=== PATIENT | male | born 1995 | race American Indian/Alaskan Native ===

== ENCOUNTER 2016-08-12 13:07 | Emergency (ER) | payer SELFPAY ==
[2016-08-12 15:02] VITALS: BP 140/88
== END 2016-08-12 23:17 | disposition left against medical advice (07) ==
LOC: ED 13:07
DX: T20.00XA Burn of unspecified degree of head, face, and neck, unspecified site, initial encounter (principal); T23.009A Burn of unspecified degree of unspecified hand, unspecified site, initial encounter; Z53.21 Procedure and treatment not carried out due to patient leaving prior to being seen by health care provider; X08.8XXA Exposure to other specified smoke, fire and flames, initial encounter; Y93.9 Activity, unspecified; Y92.9 Unspecified place or not applicable; Y99.9 Unspecified external cause status

== ENCOUNTER 2019-08-17 02:56 | Emergency (ER) | payer SELFPAY ==
[2019-08-17] MEDS ORDERED: IPRATROPIUM/ALBUTEROL SULFATE 3 ML AMPUL.NEB IH ONE (03:46)
[2019-08-17] MEDS ORDERED: predniSONE 20 MG TAB PO ONE (03:46)
[2019-08-17] MEDS ORDERED: methylPREDNISolone Sod Succinate 125 MG/2 ML INJ IM ONE (04:02)
[2019-08-17] MEDS ORDERED: ONDANSETRON 4 MG ODT TAB PO ONE (04:02)
--- NOTE | 2019-08-17 04:16 | XRay Report ---
CHEST 2 VIEWS INDICATION / CLINICAL INFORMATION: Cough, wheezing, body aches and chills for 3 days.. COMPARISON: None available. FINDINGS: SUPPORT DEVICES: None. HEART / MEDIASTINUM: The heart size and pulmonary vasculature are normal. LUNGS / PLEURA: No significant pulmonary or pleural abnormality. No pneumothorax. ADDITIONAL FINDINGS: No significant additional findings. IMPRESSION: No acute findings. There is no evidence of pneumonia. Signer Name: Chepe Eaton MD Signed: 08/17/2019 4:11 AM Workstation Name: [id number]
--- NOTE | 2019-08-17 05:11 | Emergency Department Report ---
- General Chief Complaint: Upper Respiratory Infection Stated Complaint: FEVER/ASTHMA Source: patient Mode of arrival: Ambulatory Limitations: No Limitations - History of Present Illness Initial Comments: Patient is a 24-year-old -[place] male with a history of chronic asthma with occasional exacerbations presents to the ED, acute onset persistent nasal and sinus congestion, dry cough, sore throat, diffuse body aches and pains for the last 2 days, and shortness of breath with wheezing and chest tightness for the last 12 hours. Patient states that he does not have any rescue inhaler at home because he rarely gets asthma attacks. Patient denies dizziness, fever, chills, cough, chest pain, palpitations, abdominal pain, nausea and vomiting, neck pain or change in vision and syncope. MD Complaint: cough, sore throat, rhinorrhea, nasal congestion, other (shortness of breath and wheezing) -: Sudden, days(s) (2) Severity: severe Severity scale (0 -10): 7 Quality: dull, aching Consistency: constant Improves With: nothing Context: sick contacts Associated Symptoms: denies other symptoms, headache, rhinorrhea, nasal congestion, sore throat, cough, shortness of breath. denies: fever, nausea, vomiting, diarrhea, confusion, weight loss, hoarseness Treatments Prior to Arrival: none - Related Data Previous Rx's Medication Instructions Recorded Last Taken Type Acetaminophen/Codeine 1 tab PO Q6H PRN #20 tab 09/05/14 Unknown Rx [Acetaminophen-Codeine #3 TAB] Amoxicillin [Amoxicillin TAB] 875 mg PO BID #20 tablet 09/05/14 Unknown Rx Albuterol INH(or & Nicu Only) 1 - 2 puff IH Q6H PRN #1 inh 08/17/19 Unknown Rx [ProAir HFA Inhaler] Azithromycin [Zithromax Z-SELINA] 250 mg PO DAILY #6 tablet 08/17/19 Unknown Rx Benzonatate [Tessalon Perles] 100 mg PO Q8HR #30 capsule 08/17/19 Unknown Rx Cetirizine HCl [Zyrtec 10mg tab] 10 mg PO DAILY #30 tablet 08/17/19 Unknown Rx Ibuprofen [Motrin] 600 mg PO Q8H PRN #24 tablet 08/17/19 Unknown Rx methylPREDNISolone [Medrol 4MG 4 mg PO DAILY #21 tab.ds.pk 08/17/19 Unknown Rx DOSEPAK (21 tabs)] Allergies Allergy/AdvReac Type Severity Reaction Status Date / Time No Known Allergies Allergy Verified 08/12/16 14:58 ED Review of Systems ROS: Stated complaint: FEVER/ASTHMA Other details as noted in HPI Constitutional: denies: chills, fever Eyes: denies: eye pain, eye discharge, vision change ENT: throat pain, congestion. denies: ear pain Respiratory: cough, shortness of breath, wheezing Cardiovascular: denies: chest pain, palpitations Endocrine: no symptoms reported Gastrointestinal: denies: abdominal pain, nausea, diarrhea Genitourinary: denies: urgency, dysuria Musculoskeletal: denies: back pain, joint swelling, arthralgia Skin: denies: rash, lesions Neurological: denies: headache, weakness, paresthesias Psychiatric: denies: anxiety, depression Hematological/Lymphatic: denies: easy bleeding, easy bruising ED Past Medical Hx - Past Medical History Previous Medical History?: Yes Hx Asthma: Yes - Surgical History Past Surgical History?: No - Social History Smoking Status: Current Every Day Smoker Substance Use Type: Marijuana - Medications Home Medications: Home Medications Medication Instructions Recorded Confirmed Last Taken Type Acetaminophen/Codeine 1 tab PO Q6H PRN #20 tab 09/05/14 Unknown Rx [Acetaminophen-Codeine #3 TAB] Amoxicillin [Amoxicillin TAB] 875 mg PO BID #20 tablet 09/05/14 Unknown Rx Albuterol INH(or & Nicu Only) 1 - 2 puff IH Q6H PRN #1 inh 08/17/19 Unknown Rx [ProAir HFA Inhaler] Azithromycin [Zithromax Z-SELINA] 250 mg PO DAILY #6 tablet 08/17/19 Unknown Rx Benzonatate [Tessalon Perles] 100 mg PO Q8HR #30 capsule 08/17/19 Unknown Rx Cetirizine HCl [Zyrtec 10mg tab] 10 mg PO DAILY #30 tablet 08/17/19 Unknown Rx Ibuprofen [Motrin] 600 mg PO Q8H PRN #24 tablet 08/17/19 Unknown Rx methylPREDNISolone [Medrol 4MG 4 mg PO DAILY #21 tab.ds.pk 08/17/19 Unknown Rx DOSEPAK (21 tabs)] ED Physical Exam - General Limitations: No Limitations General appearance: alert, in no apparent distress - Head Head exam: Present: atraumatic, normocephalic, normal inspection - Eye Eye exam: Present: normal appearance, PERRL, EOMI Pupils: Present: normal accommodation - ENT ENT exam: Present: normal orophraynx, mucous membranes moist, TM's normal bilaterally, normal external ear exam, other (grossly congested nasal passages) - Neck Neck exam: Present: normal inspection, full ROM - Respiratory Respiratory exam: Present: wheezes (mildly diffuse coarse wheezes throughout). Absent: respiratory distress, rales, rhonchi, accessory muscle use, decreased breath sounds, prolonged expiratory - Cardiovascular Cardiovascular Exam: Present: regular rate, normal rhythm, normal heart sounds. Absent: systolic murmur, diastolic murmur, rubs, gallop - GI/Abdominal GI/Abdominal exam: Present: soft, normal bowel sounds. Absent: tenderness, guarding, rebound, hyperactive bowel sounds - Extremities Exam Extremities exam: Present: normal inspection, full ROM, normal capillary refill - Back Exam Back exam: Present: normal inspection, full ROM. Absent: tenderness, CVA tenderness (L), muscle spasm, paraspinal tenderness - Neurological Exam Neurological exam: Present: alert, oriented X3, CN II-XII intact, normal gait, reflexes normal - Psychiatric Psychiatric exam: Present: normal affect, normal mood - Skin Skin exam: Present: warm, dry, intact, normal color. Absent: rash ED Course Vital Signs 08/17/19 08/17/19 03:05 04:38 Temperature 99.2 F Pulse Rate 107 H Pulse Rate [ 108 H Bilateral] Respiratory 18 Rate Respiratory 24 Rate [Bilateral ] Blood Pressure 153/82 O2 Sat by Pulse 88 Oximetry ED Medical Decision Making - Radiology Data Radiology results: report reviewed, image reviewed Chest x-ray shows no acute cardiopulmonary abnormalities or pneumonitis. - Medical Decision Making This is a 24-year-old male with a history of asthma who presented to the ED with nasal and sinus congestion, dry cough, wheezing and shortness of breath. In the ED, patient is alert and oriented 3 and is nondistended distress. Patient was treated in the ED with Solu-Medrol, DuoNeb and also had antiemetic Zofran. Chest x-ray shows no acute cardiopulmonary abnormalities or pneumonitis. On reevaluation, patient's wheezing and shortness of breath resolved. Patient was discharged home on medications and was advised to follow-up with his primary care physician at [facility] in 5-7 days for reevaluation or return to the ED immediately if symptoms get worse. - Differential Diagnosis URI; FLU; Bronchitis; Asthma; Pneumonia Critical care attestation.: If time is entered above; I have spent that time in minutes in the direct care of this critically ill patient, excluding procedure time. ED Disposition Clinical Impression: Acute upper respiratory infection, Acute asthmatic bronchitis, Flu-like symptoms Disposition: TO HOME OR SELFCARE Is pt being admited?: No Does the pt Need Aspirin: No Condition: Stable Instructions: Acute Bronchitis (ED), Upper Respiratory Infection (ED), Asthma (ED) Additional Instructions: Take medications with food, drink plenty of fluids and follow-up with your primary care physician in 5-7 days for reevaluation. Return to the ED immediately if symptoms get worse. Prescriptions: methylPREDNISolone [Medrol 4MG DOSEPAK (21 tabs)] 4 mg PO DAILY #21 tab.ds.pk Ibuprofen [Motrin] 600 mg PO Q8H PRN #24 tablet PRN Reason: Pain Albuterol INH(or & Nicu Only) [ProAir HFA Inhaler] 1 - 2 puff IH Q6H PRN #1 inh PRN Reason: Dyspnea Benzonatate [Tessalon Perles] 100 mg PO Q8HR #30 capsule Azithromycin [Zithromax Z-SELINA] 250 mg PO DAILY #6 tablet Cetirizine HCl [Zyrtec 10mg tab] 10 mg PO DAILY #30 tablet Referrals: [facility] [Outside] - 3-5 Days Time of Disposition: 05:12 Print Language: IRAQI
[2019-08-17 05:46] VITALS: BP 115/73
== END 2019-08-17 05:46 | disposition home or self-care (01) ==
LOC: ED 02:56
DX: J06.9 Acute upper respiratory infection, unspecified (principal); J45.909 Unspecified asthma, uncomplicated; F17.200 Nicotine dependence, unspecified, uncomplicated; F12.10 Cannabis abuse, uncomplicated; Z79.899 Other long term (current) drug therapy
CPT/HCPCS: 71046; 94640; 96372; 99283; J2930; 94644; Q0162

== ENCOUNTER 2019-10-03 22:13 | Inpatient (IN) | payer OTHER ==
--- NOTE | 2019-10-03 23:38 | Emergency Department Report ---
<MIRA CASTLE ARASHTANNER - Last Filed: 10/04/19 02:10> ED Palpitations HPI - General Chief Complaint: Arrhythmia/Palpitations Stated Complaint: HEART FLUTTERS Time Seen by Provider: 10/03/19 22:52 Source: patient Mode of arrival: Ambulatory Limitations: No Limitations - History of Present Illness Initial Comments: This is a 24-year-old -[place] male who presents to the emergency room with palpitations. Patient states he was drinking orange juice around 100 a.m. this morning when he felt a fluttering to chest. Past medical history of asthma. Current occasional marijuana smoker. Patient denies drug use other domonique n marijuana. No history of alcohol withdrawal. Has been tolerating oral hydration at home. Patient spouse states he was initially complaining of pain clinic since her right upper extremity which is now resolved. Patient reports symptoms lasted for 10 hours but now resolved. He denies fever, chills, cough, edema, shortness of breath, vomiting, or radiating pain. Denies recent travel out of the country. MD Complaint: palpitations -: This morning Time: 10:00 Associated Symptoms: denies other symptoms - Related Data Previous Rx's Medication Instructions Recorded Last Taken Type Acetaminophen/Codeine 1 tab PO Q6H PRN #20 tab 09/05/14 Unknown Rx [Acetaminophen-Codeine #3 TAB] Amoxicillin [Amoxicillin TAB] 875 mg PO BID #20 tablet 09/05/14 Unknown Rx Albuterol INH(or & Nicu Only) 1 - 2 puff IH Q6H PRN #1 inh 08/17/19 Unknown Rx [ProAir HFA Inhaler] Azithromycin [Zithromax Z-SELINA] 250 mg PO DAILY #6 tablet 08/17/19 Unknown Rx Benzonatate [Tessalon Perles] 100 mg PO Q8HR #30 capsule 08/17/19 Unknown Rx Cetirizine HCl [Zyrtec 10mg tab] 10 mg PO DAILY #30 tablet 08/17/19 Unknown Rx Ibuprofen [Motrin] 600 mg PO Q8H PRN #24 tablet 08/17/19 Unknown Rx methylPREDNISolone [Medrol 4MG 4 mg PO DAILY #21 tab.ds.pk 08/17/19 Unknown Rx DOSEPAK (21 tabs)] Allergies Allergy/AdvReac Type Severity Reaction Status Date / Time No Known Allergies Allergy Verified 08/12/16 14:58 ED Review of Systems Constitutional: denies: chills, fever ENT: denies: ear pain, throat pain Respiratory: denies: cough, shortness of breath, wheezing Cardiovascular: palpitations. denies: chest pain Gastrointestinal: denies: abdominal pain, nausea, diarrhea Musculoskeletal: denies: back pain, joint swelling, arthralgia Skin: denies: rash, lesions Neurological: denies: headache, weakness, paresthesias Psychiatric: denies: anxiety, depression ED Past Medical Hx - Past Medical History Previous Medical History?: Yes Hx Asthma: Yes Additional medical history: heart murmur - Surgical History Past Surgical History?: No - Social History Smoking Status: Current Some Day Smoker Substance Use Type: Alcohol, Marijuana - Medications Home Medications: Home Medications Medication Instructions Recorded Confirmed Last Taken Type Acetaminophen/Codeine 1 tab PO Q6H PRN #20 tab 09/05/14 Unknown Rx [Acetaminophen-Codeine #3 TAB] Amoxicillin [Amoxicillin TAB] 875 mg PO BID #20 tablet 09/05/14 Unknown Rx Albuterol INH(or & Nicu Only) 1 - 2 puff IH Q6H PRN #1 inh 08/17/19 Unknown Rx [ProAir HFA Inhaler] Azithromycin [Zithromax Z-SELINA] 250 mg PO DAILY #6 tablet 08/17/19 Unknown Rx Benzonatate [Tessalon Perles] 100 mg PO Q8HR #30 capsule 08/17/19 Unknown Rx Cetirizine HCl [Zyrtec 10mg tab] 10 mg PO DAILY #30 tablet 08/17/19 Unknown Rx Ibuprofen [Motrin] 600 mg PO Q8H PRN #24 tablet 08/17/19 Unknown Rx methylPREDNISolone [Medrol 4MG 4 mg PO DAILY #21 tab.ds.pk 08/17/19 Unknown Rx DOSEPAK (21 tabs)] ED Physical Exam - General Limitations: No Limitations General appearance: alert, in no apparent distress - ENT ENT exam: Present: mucous membranes moist - Respiratory Respiratory exam: Present: normal lung sounds bilaterally. Absent: respiratory distress, wheezes, rales, rhonchi, chest wall tenderness, prolonged expiratory - Cardiovascular Cardiovascular Exam: Present: regular rate, normal rhythm. Absent: systolic murmur, diastolic murmur, rubs, gallop - GI/Abdominal GI/Abdominal exam: Present: soft, normal bowel sounds. Absent: distended, tenderness, guarding, rebound, rigid - Extremities Exam Extremities exam: Present: normal inspection - Neurological Exam Neurological exam: Present: alert, oriented X3 - Psychiatric Psychiatric exam: Present: normal affect, normal mood - Skin Skin exam: Present: warm, dry, intact, normal color. Absent: rash ED Course - Reevaluation(s) Reevaluation #1: 10/04/19 01:[address] Hammond regarding EKG new onset atrial fibrillation and possible admission. The first EKG is A. fib rate 120 and a second EKG atrial f ibrillation rate 76. Labs pending. 10/04/19 01:22 10/04/19 01:39 ED Medical Decision Making - Lab Data Result diagrams: 10/04/19 00:58 10/04/19 00:58 Lab Results 10/04/19 10/04/19 10/04/19 Range/Units 00:58 00:58 00:58 WBC 6.9 (4.5-11.0) K/mm3 RBC 5.40 H (3.65-5.03) M/mm3 Hgb 16.4 H (11.8-15.2) gm/dl Hct 48.7 H (35.5-45.6) % MCV 90 (84-94) fl MCH 30 (28-32) pg MCHC 34 (32-34) % RDW 14.2 (13.2-15.2) % Plt Count 113 L (140-440) K/mm3 Lymph % (Auto) 39.0 H (13.4-35.0) % [place] % (Auto) 11.9 H (0.0-7.3) % Eos % (Auto) 2.5 (0.0-4.3) % Baso % (Auto) 0.9 (0.0-1.8) % Lymph # 2.7 (1.2-5.4) K/mm3 [place] # 0.8 (0.0-0.8) K/mm3 Eos # 0.2 (0.0-0.4) K/mm3 Baso # 0.1 (0.0-0.1) K/mm3 Seg Neutrophils % 45.7 (40.0-70.0) % Seg Neutrophils # 3.2 (1.8-7.7) K/mm3 Sodium 143 (137-145) mmol/L Potassium 4.4 (3.6-5.0) mmol/L Chloride 105.5 (98-107) mmol/L Carbon Dioxide 26 (22-30) mmol/L Anion Gap 16 mmol/L BUN 18 (9-20) mg/dL Creatinine 1.3 (0.8-1.5) mg/dL Estimated GFR > 60 ml/min BUN/Creatinine Ratio 14 % Glucose 96 (75-100) mg/dL Calcium 9.3 (8.4-10.2) mg/dL Total Bilirubin 0.20 (0.1-1.2) mg/dL AST 15 (5-40) units/L ALT 10 (7-56) units/L Alkaline Phosphatase 73 (35-129) units/L Troponin T < 0.010 (0.00-0.029) ng/mL Total Protein 6.7 (6.3-8.2) g/dL Albumin 3.8 L (3.9-5) g/dL Albumin/Globulin Ratio 1.3 % TSH (0.270-4.200) mlU/mL 10/04/19 Range/Units 00:58 WBC (4.5-11.0) K/mm3 RBC (3.65-5.03) M/mm3 Hgb (11.8-15.2) gm/dl Hct (35.5-45.6) % MCV (84-94) fl MCH (28-32) pg MCHC (32-34) % RDW (13.2-15.2) % Plt Count (140-440) K/mm3 Lymph % (Auto) (13.4-35.0) % [place] % (Auto) (0.0-7.3) % Eos % (Auto) (0.0-4.3) % Baso % (Auto) (0.0-1.8) % Lymph # (1.2-5.4) K/mm3 [place] # (0.0-0.8) K/mm3 Eos # (0.0-0.4) K/mm3 Baso # (0.0-0.1) K/mm3 Seg Neutrophils % (40.0-70.0) % Seg Neutrophils # (1.8-7.7) K/mm3 Sodium (137-145) mmol/L Potassium (3.6-5.0) mmol/L Chloride (98-107) mmol/L Carbon Dioxide (22-30) mmol/L Anion Gap mmol/L BUN (9-20) mg/dL Creatinine (0.8-1.5) mg/dL Estimated GFR ml/min BUN/Creatinine Ratio % Glucose (75-100) mg/dL Calcium (8.4-10.2) mg/dL Total Bilirubin (0.1-1.2) mg/dL AST (5-40) units/L ALT (7-56) units/L Alkaline Phosphatase (35-129) units/L Troponin T (0.00-0.029) ng/mL Total Protein (6.3-8.2) g/dL Albumin (3.9-5) g/dL Albumin/Globulin Ratio % TSH 3.360 (0.270-4.200) mlU/mL - EKG Data -: No EKG Interpreted by Me (EKG interpreted by attending) Rate: tachycardia (Atrial fibrillation) - EKG Data When compared to previous EKG there are: previous EKG unavailable - Radiology Data Radiology results: report reviewed CHEST PA AND LATERAL VIEWS INDICATION: palpitations. COMPARISON: 08/17/2019 FINDINGS: Support devices: None. Heart: Within normal limits. Lungs/Pleura: No acute pulmonary or pleural findings. IMPRESSION: 1. No acute findings. - Medical Decision Making This is a 24-year-old male that presents to the emergency room with palpitations since this morning. Work-up: EKG, chest x-ray, CBC, CMP, troponin, and TSH. EKG new onset atrial fibrillation. Chest x-ray no acute findings. And given the patient's history and exam his rate is controlled but will require thorough workup for new arrhythmia. Consulted attending Dr. Hammond who agreed with admission. Consulted hospitalist Dr. Phillip who agreed to admit. ED Disposition Clinical Impression: New onset atrial fibrillation, Palpitations Atrial fibrillation Qualifiers: Atrial fibrillation type: unspecified Qualified Code(s): I48.91 - Unspecified atrial fibrillation Disposition: OP ADMIT IP TO THIS HOSP Is pt being admited?: Yes Condition: Critical <DAMON HAMMOND III - Last Filed: 10/04/19 02:36> ED Review of Systems ROS: Stated complaint: HEART FLUTTERS Other details as noted in HPI ED Course Vital Signs 10/03/19 10/04/19 10/04/19 22:25 01:25 01:26 Temperature 97.9 F 98.1 F Pulse Rate 91 H 74 Respiratory 18 19 17 Rate Blood Pressure 104/66 Blood Pressure 120/77 [Left] O2 Sat by Pulse 98 99 99 Oximetry - Reevaluation(s) Reevaluation #2: I examined patient. Cardiac exam reveals a irregular rhythm. I discussed all clinical findings with patient. I discussed plan of care with patient. Patient agrees with plan of care and admission. Patient will be admitted to the hospitalist service once labs have resulted. 10/04/19 01:35 ED Medical Decision Making - Lab Data Result diagrams: 10/04/19 00:58 10/04/19 00:58 - Differential Diagnosis palpitatrions. afib.flutter. Electrolyte imbalance Critical Care Time: Yes Critical care time in (mins) excluding proc time.: 35 Critical care attestation.: If time is entered above; I have spent that time in minutes in the direct care of this critically ill patient, excluding procedure time. Critical Care Time: 35 minutes ED Disposition Is pt being admited?: Yes Does the pt Need Aspirin: No Time of Disposition: 02:35
--- NOTE | 2019-10-04 00:52 | XRay Report ---
CHEST PA AND LATERAL VIEWS INDICATION: palpitations. COMPARISON: 08/17/2019 FINDINGS: Support devices: None. Heart: Within normal limits. Lungs/Pleura: No acute pulmonary or pleural findings. IMPRESSION: 1. No acute findings. Signer Name: Meliton Ayala MD Signed: 10/04/2019 12:47 AM Workstation Name: [id number]
[2019-10-04 01:15] LABS: Basophils # (Auto) 0.1 K/mm3 (0.0-0.1); Basophils % (Auto) 0.9 % (0.0-1.8); Eosinophils # (Auto) 0.2 K/mm3 (0.0-0.4); Eosinophils % (Auto) 2.5 % (0.0-4.3); Hematocrit 48.7 % (35.5-45.6); Hemoglobin 16.4 gm/dl (11.8-15.2); Lymphocytes # (Auto) 2.7 K/mm3 (1.2-5.4); Mean Corpuscular HGB Conc 34 % (32-34); Mean Corpuscular Volume 90 fl (84-94); Monocytes # (Auto) 0.8 K/mm3 (0.0-0.8); Monocytes % (Auto) 11.9 % (0.0-7.3); Red Cell Distribution Width 14.2 % (13.2-15.2)
[2019-10-04 01:30] LABS: Platelet Count 113 K/mm3 (140-440)
[2019-10-04 01:39] LABS: Alanine Aminotransferase 10 units/L (7-56); Albumin 3.8 g/dL (3.9-5); BUN/Creatinine Ratio 14; Blood Urea Nitrogen 18 mg/dL (9-20); Calcium 9.3 mg/dL (8.4-10.2); Hemolysis Index 28
--- NOTE | 2019-10-04 02:20 | History and Physical Report ---
History of Present Illness History of present illness: 24-year-old man with a history of asthma comes emergency room complaining of palpitations. He gets palpitations almost every day. Palpitations started this morning at 10 AM and has been intermittently constant until now. States that this is the longest his palpitations is lasted for. Around 6 PM he developed pain in the epigastric area which he is unable to describe, intermittent lasting for less than 5 minutes, no radiation, cannot identify exacerbating factor and associated with right arm tingling. Smokes daily marijuana, rarely uses caffeinated drinks, no herbal supplements. Patient will be admitted for evaluation of palpitations Review Of Systems: Constitutional: no weight loss, fever, chills Ears, eyes, nose, mouth and throat: no nasal congestion, no nasal discharge, no sinus pressure, blurry vision, diplopia Neck: No neck pain or rigidity. Cardiovascular: + palpitations, chest pain Respiratory: No shortness of breath, cough Gastrointestinal: No hematochezia Genitourinary : no dysuria, frequency Musculoskeletal: no muscle ache , joint pain Integumentary: no rash, no pruritis Neurological: no parathesias, focal weakness Endocrine: no cold or heat intolerance, no polyuria or polydipsia Hematologic/Lymphatic: no easy bruising, no easy bleeding, no gland swelling Allergic/Immunologic: no urticaria, no angioedema. PAST MEDICAL HISTORY: Asthma PAST SURGICAL HISTORY: None SOCIAL HISTORY:+ alcohol, none tobacco, daily marijuana FAMILY HISTORY: Hypertension Medications and Allergies Allergies Allergy/AdvReac Type Severity Reaction Status Date / Time No Known Allergies Allergy Verified 08/12/16 14:58 Home Medications Medication Instructions Recorded Confirmed Last Taken Type Aspirin [Durlaza] 162.5 mg PO DAILY #30 cap.er.24h 10/05/19 Unknown Rx Exam - Physical Exam Narrative exam: Gen. appearance: Patient lying in bed, no apparent distress HEENT: Normocephalic, atraumatic, pupils equally round and reactive to light, extraocular movement intact, and no sclericterus,. No JVD or thyromegaly or nodule,neck supple, no carotid bruit ,mucous membranes moist, no exudate or erythema Heart: S1, S2, regular rate and rhythm Lungs: Clear bilaterally, breathing comfortable Abdomen: Positive bowel sounds, nontender, nondistended, no organomegaly Extremity: no edema, cyanosis, clubbing Skin: No rash, nodules, warm, dry Neuro: speech is fluent, cranial nerves II to XII intact, motor and sensory intact - Constitutional Vitals: Temp Pulse Resp BP Pulse Ox 98.1 F 74 17 120/77 99 10/04/19 01:25 10/04/19 01:25 10/04/19 01:26 10/04/19 01:25 10/04/19 01:26 Results - Labs CBC & Chem 7: 10/04/19 02:49 10/04/19 02:49 Labs: Abnormal lab results 10/04/19 10/04/19 Range/Units 00:58 00:58 RBC 5.40 H (3.65-5.03) M/mm3 Hgb 16.4 H (11.8-15.2) gm/dl Hct 48.7 H (35.5-45.6) % Plt Count 113 L (140-440) K/mm3 Lymph % (Auto) 39.0 H (13.4-35.0) % [place] % (Auto) 11.9 H (0.0-7.3) % Albumin 3.8 L (3.9-5) g/dL - Imaging and Cardiology EKG: image reviewed Chest x-ray: report reviewed Assessment and Plan Assessment Palpitations/paroxysmal A. fib Check cardiac enzymes, echo, consult cardiology Thrombocytopenia Continue to monitor DVT prophylaxis
[2019-10-04] MEDS ORDERED: ONDANSETRON 4 MG/2 ML INJ IV PRN (02:29)
[2019-10-04] MEDS ORDERED: ACETAMINOPHEN 325 MG TAB PO PRN (02:29)
[2019-10-04] MEDS ORDERED: SODIUM CHLORIDE 0.9% 1000 ML 1,000 ML IV SCH (02:30)
[2019-10-04 03:01] LABS: Basophils % (Auto) 0.4 % (0.0-1.8); Eosinophils # (Auto) 0.2 K/mm3 (0.0-0.4); Eosinophils % (Auto) 2.9 % (0.0-4.3); Hematocrit 48.9 % (35.5-45.6); Hemoglobin 16.4 gm/dl (11.8-15.2); Lymphocytes # (Auto) 2.7 K/mm3 (1.2-5.4); Lymphocytes % (Auto) 38.9 % (13.4-35.0); Mean Corpuscular HGB Conc 34 % (32-34); Mean Corpuscular Volume 90 fl (84-94); Monocytes # (Auto) 0.8 K/mm3 (0.0-0.8); Monocytes % (Auto) 11.4 % (0.0-7.3); Platelet Count 106 K/mm3 (140-440); Red Blood Count 5.44 M/mm3 (3.65-5.03); Red Cell Distribution Width 14.5 % (13.2-15.2)
[2019-10-04 03:17] LABS: Creatine Kinase MB 2.1 ng/mL (0.0-4.0)
[2019-10-04 03:25] LABS: BUN/Creatinine Ratio 14; Blood Urea Nitrogen 18 mg/dL (9-20); Calcium 9.2 mg/dL (8.4-10.2); Hemolysis Index 86
[2019-10-04] MEDS: oxyCODONE /ACETAMINOPHEN 5-325MG TAB PO PRN ×3 (04:16→23:30)
[2019-10-04 09:09] LABS: Creatine Kinase MB 1.7 ng/mL (0.0-4.0)
[2019-10-04] MEDS ORDERED: ENOXAPARIN 100 MG/1 ML INJ SUB-Q SCH (10:39)
--- NOTE | 2019-10-04 10:49 | Consultation ---
History of Present Illness Consult date: 10/04/19 Consult reason: atrial fibrillation History of present illness: Patient presenting with acute onset palpitations. ECG on admission showing atrial fibrillation. Patient states that he had a heart murmur as a child but never received appropriate follow-up with cardiology. Patient admits smoking marijuana but ricki heavy alcohol use. Patient denies DM, HTN, heart failure, peripheral vascular disease. Patient denies family history of cardiac disease. Past History Past Medical History: No medical history Past Surgical History: No surgical history Social history: other (marijuana use) Family history: no significant family history Medications and Allergies Allergies Allergy/AdvReac Type Severity Reaction Status Date / Time No Known Allergies Allergy Verified 08/12/16 14:58 Home Medications Medication Instructions Recorded Confirmed Last Taken Type No Known Home Medications [No 10/04/19 10/04/19 Unknown History Reported Home Medications] Active Meds: Active Medications Acetaminophen (Tylenol) 650 mg PO Q4H PRN PRN Reason: Pain MILD(1-3)/Fever >100.5/ESCALANTE Apixaban (Eliquis) 5 mg PO Q12HR [facility]; Protocol Enoxaparin Sodium (Enoxaparin) 100 mg SUB-Q ONCE ONE Stop: 10/04/19 10:40 Ondansetron HCl (Zofran) 4 mg IV Q8H PRN PRN Reason: Nausea And Vomiting Oxycodone/Acetaminophen (Percocet 5/325) 1 tab PO Q6H PRN PRN Reason: Pain, Moderate (4-6) Last Admin: 10/04/19 04:16 Dose: 1 tab Documented by: Sodium Chloride (Sodium Chloride Flush Syringe 10 Ml) 10 ml IV BID [facility] Last Admin: 10/04/19 10:05 Dose: 10 ml Documented by: Sodium Chloride (Sodium Chloride Flush Syringe 10 Ml) 10 ml IV PRN PRN PRN Reason: LINE FLUSH Review of Systems All systems: negative Physical Examination Vital Signs Temp Pulse Resp BP Pulse Ox 97.9 F 91 H 18 104/66 98 10/03/19 22:25 10/03/19 22:25 10/03/19 22:25 10/03/19 22:25 10/03/19 22:25 General appearance: no acute distress HEENT: Positive: PERRL Neck: Positive: neck supple Cardiac: Positive: Reg Rate and Rhythm Lungs: Positive: Normal Exam Neuro: Positive: Grossly Intact Abdomen: Positive: Soft Extremities: Absent: edema Results 10/04/19 02:49 10/04/19 02:49 Cardiac Enzymes 10/04/19 10/04/19 10/04/19 Range/Units 00:58 02:49 08:20 AST 15 (5-40) units/L CK-MB (CK-2) 2.1 1.7 (0.0-4.0) ng/mL CBC 10/04/19 10/04/19 Range/Units 00:58 02:49 WBC 6.9 6.9 (4.5-11.0) K/mm3 RBC 5.40 H 5.44 H (3.65-5.03) M/mm3 Hgb 16.4 H 16.4 H (11.8-15.2) gm/dl Hct 48.7 H 48.9 H (35.5-45.6) % Plt Count 113 L 106 L (140-440) K/mm3 Lymph # 2.7 2.7 (1.2-5.4) K/mm3 [place] # 0.8 0.8 (0.0-0.8) K/mm3 Eos # 0.2 0.2 (0.0-0.4) K/mm3 Baso # 0.1 0.0 (0.0-0.1) K/mm3 Comprehensive Metabolic Panel 10/04/19 10/04/19 Range/Units 00:58 02:49 Sodium 143 141 (137-145) mmol/L Potassium 4.4 4.8 (3.6-5.0) mmol/L Chloride 105.5 104.4 (98-107) mmol/L Carbon Dioxide 26 24 (22-30) mmol/L BUN 18 18 (9-20) mg/dL Creatinine 1.3 1.3 (0.8-1.5) mg/dL Glucose 96 95 (75-100) mg/dL Calcium 9.3 9.2 (8.4-10.2) mg/dL AST 15 (5-40) units/L ALT 10 (7-56) units/L Alkaline Phosphatase 73 (35-129) units/L Total Protein 6.7 (6.3-8.2) g/dL Albumin 3.8 L (3.9-5) g/dL - EKG Interpretation EKG shows: atrial fibrillation EKG interpretations - Telemetry EKG Rhythm: Atrial Fibrillation Assessment and Plan New onset atrial fibrillation Normal LVEF by TTE this admission CHADSVASc = 0 Normal TSH Marijuana use Recommendations: Proceed with LONG guided cardioversion Eliquis for 30 days post cardioversion then may discontinue Check UDS Marijuana abstinence
[2019-10-04] MEDS ORDERED: AMIODARONE 150 MG in DEXTROSE 5% IN WATER 97 ML IV ONE (11:00)
[2019-10-04] MEDS ORDERED: SODIUM CHLORIDE 0.9% 500 ML 500 ML ONE (11:04)
[2019-10-04] MEDS ORDERED: BENZOCAINE 20% TOP SPRAY 0.5 ML UNIT DOSE MM ONE (11:05)
[2019-10-04] MEDS: AMIODARONE 900 MG in DEXTROSE 5% IN WATER 482 ML IV SCH (12:47)
--- NOTE | 2019-10-04 15:03 | Event Note ---
Date: 10/04/19 Patient seen and examined resting comfortably no new distress at this time. Still in A. fib. Cardiology planning a cardioversion but had to move this. Due to patient eating this morning
[2019-10-04] MEDS: APIXABAN 5 MG TAB PO SCH (21:29)
[2019-10-05 00:58] LABS: Amphetamine Screen,Urine PRESUMPTIVE NEGATIVE; Benzodiazepines Screen,Urine PRESUMPTIVE NEGATIVE; Methadone Screen,Urine PRESUMPTIVE NEGATIVE; Opiate Screen,Urine PRESUMPTIVE NEGATIVE
[2019-10-05 01:16] LABS: Cannabinoid Screen,Urine PRESUMPTIVE POSITIVE; Cocaine Screen,Urine PRESUMPTIVE POSITIVE
[2019-10-05] MEDS: oxyCODONE /ACETAMINOPHEN 5-325MG TAB PO PRN ×2 (04:43→10:34)
[2019-10-05] MEDS: AMIODARONE 900 MG in DEXTROSE 5% IN WATER 482 ML IV SCH (04:44)
[2019-10-05] MEDS: APIXABAN 5 MG TAB PO SCH (10:34)
--- NOTE | 2019-10-05 11:18 | Progress Note ---
Assessment and Plan New onset atrial fibrillation converted to normal sinus rhythm on IV amiodarone Normal LVEF by TTE this admission CHADSVASc = 0 Normal TSH Marijuana use Recommendations: Patient spontaneous converted to normal sinus rhythm. CHADSVASc = 0 Recommend aspirin for at least 4 weeks. Marijuana abstinence Patient can be discharged home from cardiac standpoint with outpatient follow-up Subjective Date of service: 10/05/19 Principal diagnosis: Atrial fibrillation Interval history: Converted to normal sinus rhythm on amiodarone Objective Vital Signs Temp Pulse Resp BP Pulse Ox 10/05/19 08:13 79 10/05/19 08:03 98.2 F 78 18 128/76 93 10/05/19 05:06 98.0 F 79 18 134/94 99 10/05/19 04:00 60 10/04/19 23:51 99.0 F 68 20 145/88 100 10/04/19 22:00 74 10/04/19 21:10 99.0 F 66 16 134/74 100 10/04/19 20:45 100 10/04/19 16:53 70 10/04/19 16:23 98.5 F 70 18 118/63 99 10/04/19 12:29 98.2 F 95 H 18 134/99 97 - Physical Examination General: Appears Well HEENT: Positive: PERRL, Normocephaly Neck: Positive: neck supple Cardiac: Positive: Reg Rate and Rhythm Lungs: Positive: Normal Exam Neuro: Positive: Grossly Intact Abdomen: Positive: Unremarkable, Soft Skin: Positive: Clear Gait: Normal Gait Extremities: Present: normal. Absent: edema - Imaging and Cardiology EKG: image reviewed
--- NOTE | 2019-10-05 11:42 | Discharge Summary ---
Providers - Providers Date of Admission: 10/04/19 02:51 Attending physician: JOE SALAZAR MD 10/04/19 02:29 Consult to Physician [CONS] Routine Comment: Consulting Provider: LANCE PRATER Physician Instructions: Reason For Exam: palpiattions Primary care physician: HABITAT BIOLOGIST Hospitalization Condition: Stable Hospital course: New onset atrial fibrillation converted to normal sinus rhythm on IV amiodarone Normal LVEF by TTE this admission CHADSVASc = 0 Normal TSH Marijuana use Recommendations: Patient spontaneous converted to normal sinus rhythm. CHADSVASc = 0 Recommend aspirin for at least 4 weeks. Marijuana and Cocain abstinence Patient can be discharged home from cardiac standpoint with outpatient follow-up must quit substance abuse Disposition: DC-01 TO HOME OR SELFCARE Exam - Constitutional Vitals: Temp Pulse Resp BP Pulse Ox 98.2 F 79 18 128/76 93 10/05/19 08:03 10/05/19 08:13 10/05/19 08:03 10/05/19 08:03 10/05/19 08:03 Plan Activity: advance as tolerated, fall precautions Diet: low fat Special Instructions: record daily weights, record daily BP diary, smoking cessation Follow up with: HARLEY PEREZ MD [Primary Care Provider] - 7 Days RUTHANN NG MD [Staff Physician] - 10/31/19 Prescriptions: Aspirin [Durlaza] 162.5 mg PO DAILY #30 cap.er.24h
[2019-10-05 19:34] VITALS: BP 149/77
== END 2019-10-05 19:40 | disposition home or self-care (01) | DRG 310 ==
LOC: ED 22:13 → 4A 10-04 02:51
PROVIDERS: ADMIT Internal Medicine; ATTEND Internal Medicine
DX: I48.0 Paroxysmal atrial fibrillation (principal); I48.91 Unspecified atrial fibrillation; D69.6 Thrombocytopenia, unspecified; J45.909 Unspecified asthma, uncomplicated; F12.90 Cannabis use, unspecified, uncomplicated; F17.210 Nicotine dependence, cigarettes, uncomplicated; R00.2 Palpitations; Z82.49 Family history of ischemic heart disease and other diseases of the circulatory system
CPT/HCPCS: 36415; 71046; 80048; 80053; 80307; 82550; 82553; 84443; 84484; 85025; 93005; 93010; 93306; G0378; J0282; J7040; J7060